=== PATIENT | female | born 1995 | race Caucasian/White ===

== ENCOUNTER 2016-09-15 08:43 | Emergency (ER) | payer OTHER ==
[~2016-09-15] VITALS: Ht 162.6 cm; Wt 85.0 kg
[~2016-09-15 08:43] MED LIST: AMPH30CA3 PO; BREX1TAB PO; FLUO20CA20 PO
[2016-09-15 08:47] VITALS: Ht 162.6 cm; Wt 85.0 kg
[2016-09-15] MEDS ORDERED: SODIUM CHLORIDE 0.9% 1000ML 1,000 ML IV STA (09:09)
--- NOTE | 2016-09-15 09:14 | EMERGENCY ROOM VISIT NOTE ---
History Report prepared by Michelle: Mercedes Gregory Under the Supervision of: Dr. Karen Dodson D.O. First contact with patient: 08:59 Chief Complaint: HEAD PAIN Stated Complaint: HEAD PAIN, DIZZY, NAUSEA, BODY ACHES History of Present Illness The patient is a 21 year old female who presents to the Emergency Room with complaints of a persistent fever that began last night. The patient also complains of a headache, body aches, and nausea. Both her muscles and joints hurt. The patient notes that she has been getting headaches on and off over the past month. She did not get a flu shot this year. She has not had a bowel movement in a few days. Denies coughing, sore throat, vomiting, urinary symptoms , or other complaints. The patient is a student at [employer]. She does not believe there is a chance of , as she is currently towards the end of her menstrual period. Source of History: patient Onset: last night Position: other (global) Timing: other (persistent) Associated Symptoms: + nausea, No cough, No sorethroat, No urinary symptoms , No vomiting Note: Other symptoms: body aches Review of Systems See HPI for pertinent positives & negatives. A total of 10 systems reviewed and were otherwise negative. Past Medical & Surgical Medical Problems: (1) Anxiety (2) Depression Family History Cancer Seizures Social History Smoking Status: Never Smoker Alcohol Use: occasionally Drug Use: none Marital Status: single Occupation Status: [employer] student Current/Historical Medications Scheduled Amphetamine-Dextroamphetamine 30MG (Adderall Xr 30MG), 30 MG PO QAM Brexpiprazole (Rexulti), 1 MG PO DAILY Fluoxetine Hcl (Pmdd) (Fluoxetine), 80 MG PO DAILY Oseltamivir (Tamiflu), 75 MG PO BID Scheduled PRN Oxycodone/Acetaminophen 5MG/325MG (Percocet 5MG/325MG), 1-2 TABLETS PO Q6 PRN for Pain Allergies Coded Allergies: No Known Allergies (Unverified , 06/15/16) Physical Exam Vital Signs Date Time Temp Pulse Resp B/P Pulse Ox O2 Delivery O2 Flow Rate FiO2 09/15/16 11:47 37.8 104 18 101/48 97 Room Air 09/15/16 10:14 102 16 112/50 98 Room Air 09/15/16 08:47 39.0 131 20 100/64 98 Room Air Physical Exam General: Appears to have significant body ache. HEENT: Head - normocephalic and atraumatic Pupils are equal, round, and reactive to light. Extraocular eye muscles are intact, and sclera are anicteric. Ears - Normal TMs. Nose - moist nasal mucosa without discharge. Mouth - moist buccal mucosa. Oropharynx is nonerythematous and there is no tonsillar exudate or edema noted. Neck: Supple; no JVD, nuchal rigidity, cervical lymphadenopathy. Heart: Regular rate and rhythm. There is a normal S1 and S2 with no murmurs, clicks, or gallops appreciated. Lungs: Clear to auscultation bilaterally with no wheezes, rales, or rhonchi. Abdomen: Soft, completely nontender, nondistended, with good bowel sounds. There are no palpable pulsatile masses or hepatosplenomegaly. There is no guarding, rigidity, or rebound noted. Extremities: No evidence of cyanosis, clubbing, or edema. There are easily palpable peripheral pulses. Pain with palpation to muscles and joints. Skin: warm and dry with good turgor and no rashes. Medical Decision & Procedures Laboratory Results 09/15/16 09:25 Red Blood Count 4.35, Mean Corpuscular Volume 79.3, Mean Corpuscular Hemoglobin 26.7, Mean Corpuscular Hemoglobin Concent 33.6, Mean Platelet Volume 9.5, Neutrophils (%) (Auto) 82.6, Lymphocytes (%) (Auto) 7.8, Monocytes (%) (Auto) 9.4, Eosinophils (%) (Auto) 0.0, Basophils (%) (Auto) 0.1, Neutrophils # (Auto) 7.45, Lymphocytes # (Auto) 0.70, Monocytes # (Auto) 0.85, Eosinophils # (Auto) 0.00, Basophils # (Auto) 0.01 09/15/16 09:25 Test 09/15/16 09:25 09/15/16 10:10 White Blood Count 9.02 K/uL (4.8-10.8) Red Blood Count 4.35 M/uL (4.2-5.4) Hemoglobin 11.6 g/dL (12.0-16.0) Hematocrit 34.5 % (37-47) Mean Corpuscular Volume 79.3 fL (80-100) Mean Corpuscular Hemoglobin 26.7 pg (25-34) Mean Corpuscular Hemoglobin Concent 33.6 g/dl (32-36) Platelet Count 159 K/uL (130-400) Mean Platelet Volume 9.5 fL (7.4-10.4) Neutrophils (%) (Auto) 82.6 % Lymphocytes (%) (Auto) 7.8 % Monocytes (%) (Auto) 9.4 % Eosinophils (%) (Auto) 0.0 % Basophils (%) (Auto) 0.1 % Neutrophils # (Auto) 7.45 K/uL (1.4-6.5) Lymphocytes # (Auto) 0.70 K/uL (1.2-3.4) Monocytes # (Auto) 0.85 K/uL (0.11-0.59) Eosinophils # (Auto) 0.00 K/uL (0-0.5) Basophils # (Auto) 0.01 K/uL (0-0.2) RDW Standard Deviation 44.2 fL (36.4-46.3) RDW Coefficient of Variation 15.0 % (11.5-14.5) Immature Granulocyte % (Auto) 0.1 % Immature Granulocyte # (Auto) 0.01 K/uL (0.00-0.02) Anion Gap 12.0 mmol/L (3-11) Est Creatinine Clear Calc Drug Dose 96.0 ml/min Estimated GFR () 96.1 Estimated GFR (Non- 82.9 BUN/Creatinine Ratio 10.9 (10-20) Calcium Level 8.8 mg/dl (8.5-10.1) Influenza Type A Antigen Neg for Influ A (NEG) Influenza Type B Antigen Neg for Influ B (NEG) Urine Color YELLOW Urine Appearance CLOUDY (CLEAR) Urine pH 7.5 (4.5-7.5) Urine Specific Frederic 1.017 (1.000-1.030) Urine Protein NEG (NEG) Urine Glucose (UA) NEG (NEG) Urine Ketones 3+ (NEG) Urine Occult Blood TRACE (NEG) Urine Nitrite NEG (NEG) Urine Bilirubin NEG (NEG) Urine Urobilinogen NEG (NEG) Urine Leukocyte Esterase LARGE (NEG) Urine WBC (Auto) >30 /hpf (0-5) Urine RBC (Auto) 5-10 /hpf (0-4) Urine Hyaline Casts (Auto) 1-5 /lpf (0-5) Urine Epithelial Cells (Auto) 20-30 /lpf (0-5) Urine Bacteria (Auto) 2+ (NEG) Laboratory results per my review. Medications Administered Medications (Trade) Dose Ordered Sig/Yobani Route Start Time Stop Time Status Last Admin Dose Admin Sodium Chloride (Nss 1000ml) 1,000 ml @ 999 mls/hr Q1H1M STAT IV 09/15/16 09:09 09/15/16 10:09 DC 09/15/16 09:33 999 MLS/HR Ketorolac Tromethamine (Toradol Inj) 30 mg NOW STAT IV 09/15/16 09:19 09/15/16 09:20 DC 09/15/16 09:33 30 MG Ondansetron HCl (Zofran Inj) 4 mg NOW STAT IV 09/15/16 09:19 09/15/16 09:20 DC 09/15/16 09:32 4 MG Acetaminophen (Tylenol Tab) 1,000 mg NOW STAT PO 09/15/16 10:29 09/15/16 10:31 DC 09/15/16 10:53 1,000 MG Oseltamivir Phosphate (Tamiflu Cap) 75 mg NOW STAT PO 09/15/16 11:26 09/15/16 11:27 DC 09/15/16 11:40 75 MG Procedure Medications: NSS 1000 ml @ 999 mls/hr IV, Zofran 4 mg IV, Toradol Inj 30 mg IV, Tylenol Tab 1000 mg PO, Tamiflu Cap 75 mg PO ED Course 0908: The patient was evaluated in room B6. A complete history and physical examination were performed. Nursing notes and previous electronic medical records were reviewed. IV lock was established and labs were drawn as above. Ordered NSS 1000 ml @ 999 mls/hr IV. 0919: Zofran 4 mg IV, Toradol Inj 30 mg IV. 1029: Ordered Tylenol Tab 1000 mg PO. 1045: I reassessed the patient. Her nausea has resolved and her headache feels a little bit better. She confirmed that she has no neck stiffness and has full range of motion of her neck without pain. She will be given Tylenol for fever and will drink some Gatorade. 1118: I reassessed the patient. Her headache has continued to improve. I discussed findings and results with the patient. She verbalized agreement of the treatment plan. The patient will be discharged home. 1126: Ordered Tamiflu cap 75 mg PO Medical Decision The patient is a 21 year old female who presents to the ED with a fever and headache. Differential diagnosis includes influenza, gastritis, viral illness, meningitis. Labs: Influenza was negative, urinalysis had 3+ ketones, trace blood, large leukocyte esterase, greater than 30 white blood cells, 2+ bacteria, normal renal function, glucose 115, normal WBC, slight anemia with hemoglobin of 11.6 ( she has a history of this). This is a 21-year-old female patient who presents to the ER with diffuse body pain, fever and headache. Her symptoms seem consistent with influenza. She has not had a flu shot this year. Her rapid flu swab was negative. However, I still believe that she is suffering from influenza. Of note, the patient's urine appears possibly infected. There was moderate contamination. I did send it for culture. When questioning the patient about urinary symptoms, she states that she did have slight urgency yesterday and some dysuria a couple weeks ago but denies any suprapubic abdominal pain, flank pain, or dysuria at this time. The patient felt much better upon discharge. She was encouraged to rest and take clear liquids. She will use Tamiflu for the next 5 days and quarantine herself the next 48 hours. We will get back to her if her urine culture is positive. [place] Drug Monitoring Program Search Results: patient reviewed within database, no issues identified Impression Primary Impression: Flu-like symptoms Scribe Attestation The scribe's documentation has been prepared under my direction and personally reviewed by me in its entirety. I confirm that the note above accurately reflects all work, treatment, procedures, and medical decision making performed by me. Departure Information Dispostion Home / Self-Care Prescriptions Oxycodone/Acetaminophen 5MG/325MG (PERCOCET 5MG/325MG) Tab 1-2 TABLETS PO Q6 Y for Pain, #14 TAB Prov: Karen Dodson D.O. 09/15/16 Oseltamivir (Tamiflu) 75 Mg Cap 75 MG PO BID, #9 CAP Prov: Karen Dodson D.O. 09/15/16 Referrals No Doctor, Assigned (PCP) Forms HOME CARE DOCUMENTATION FORM, IMPORTANT VISIT INFORMATION, WORK / SCHOOL INSTRUCTIONS Patient Instructions ED Flu, My [facility] Additional Instructions Rest. Take plenty of clear liquids tamiflu - twice a day percocet - 1-2 tabs. every 6 hours for pain Return to the ER if you develop worsening symptoms We will contact you if the urine culture grows
[2016-09-15] MEDS ORDERED: KETOROLAC TROMETHAMINE 30 MG/ML VIAL IV STA (09:19)
[2016-09-15] MEDS ORDERED: ONDANSETRON INJ 2 MG/ML 2 ML VIAL IV STA (09:19)
[2016-09-15 09:39] LABS: BASO % 0.1 %; BASO ABS # 0.01 K/uL (0-0.2); COMPLETE YES; HEMATOCRIT 34.5 % (37-47); IG% 0.1 %; LYMPH % 7.8 %; MEAN CELL VOLUME 79.3 fL (80-100); MEAN CORPUSCULAR HEMOGLOBIN 26.7 pg (25-34); MEAN CORPUSCULAR HGB CONC 33.6 g/dl (32-36); MEAN PLATELET VOLUME 9.5 fL (7.4-10.4); MONO % 9.4 %; NEUT % 82.6 %; PLATELET COUNT 159 K/uL (130-400); RED BLOOD COUNT 4.35 M/uL (4.2-5.4); WHITE BLOOD COUNT 9.02 K/uL (4.8-10.8)
[2016-09-15 09:56] LABS: BUN/CREATININE RATIO 10.9 (10-20); CALCIUM 8.8 mg/dl (8.5-10.1); CREATININE 0.97 mg/dl (0.60-1.20); POTASSIUM 3.7 mmol/L (3.5-5.1)
[2016-09-15] MEDS ORDERED: ACETAMINOPHEN 500 MG TAB PO STA (10:29)
[2016-09-15 10:57] LABS: URINE APPEARANCE CLOUDY (CLEAR); URINE BILIRUBIN NEG (NEG); URINE COLOR YELLOW; URINE EPITHELIAL CELL AUTO 20-30 /lpf (0-5); URINE NITRITE NEG (NEG); URINE PH 7.5 (4.5-7.5); URINE SPECIFIC GRAVITY 1.017 (1.000-1.030); UROBILINOGEN NEG (NEG)
[2016-09-15 11:02] LABS: MANUAL MICROSCOPIC REQUIRED? NO; REVIEW REQ? NO
[2016-09-15 11:04] LABS: SULFASALICYLIC ACID NEG (NEG)
[2016-09-15] MEDS ORDERED: OSELTAMIVIR PHOSPHATE 75 MG CAP PO STA (11:26)
[2016-09-15 11:47] VITALS: BP 101/48; PULSE 104; TEMP 37.8; O2SAT 97
[2016-09-15] MEDS ORDERED: OSEL75CA12 PO (12:06)
[2016-09-15] MEDS ORDERED: OXYC-57 PO (12:06)
[2016-09-16] MEDS ORDERED: IBUP-1050 PO (21:59)
== END 2016-09-15 12:10 | disposition home or self-care (01) ==
LOC: C.EDB 08:45
DX: R50.9 Fever, unspecified (principal); R51 Headache; F41.9 Anxiety disorder, unspecified; F32.9 Major depressive disorder, single episode, unspecified; A49.8 Other bacterial infections of unspecified site

== ENCOUNTER 2016-09-16 20:57 | Emergency (ER) | payer OTHER ==
[~2016-09-16] VITALS: Ht 162.6 cm; Wt 86.2 kg
[~2016-09-16 20:57] MED LIST changes: +OSEL75CA12 PO; +OXYC-57 PO
[2016-09-16 21:01] VITALS: Ht 162.6 cm; Wt 86.2 kg
[2016-09-16] MEDS ORDERED: ONDANSETRON INJ 2 MG/ML 2 ML VIAL IV STA (21:45)
[2016-09-16] MEDS ORDERED: KETOROLAC TROMETHAMINE 30 MG/ML VIAL IV STA (21:45)
[2016-09-16] MEDS ORDERED: SODIUM CHLORIDE 0.9% 1000ML 1,000 ML IV STA (21:45)
[2016-09-16] MEDS ORDERED: HYDROmorphone INJ 2 MG/ML SYR/VIAL IV PRN (21:45)
[2016-09-16] MEDS ORDERED: CEFTRIAXONE SOD INJ 2,000 MG in DEXTROSE 5% 50ML 50 ML IV STA (21:51)
[2016-09-16] MEDS ORDERED: IBUP-1050 PO (21:59)
[2016-09-16] MEDS ORDERED: HYDROmorphone INJ 0.5 MG/0.5 ML SYR ONE (22:14)
[2016-09-16 22:25] VITALS: O2SAT 99
[2016-09-16 22:43] LABS: BASO % 0.1 %; BASO ABS # 0.01 K/uL (0-0.2); COMPLETE YES; EOS % 0.7 %; HEMATOCRIT 31.8 % (37-47); IG% 0.2 %; LYMPH % 13.3 %; LYMPH ABS # 1.18 K/uL (1.2-3.4); MEAN CELL VOLUME 78.5 fL (80-100); MEAN CORPUSCULAR HEMOGLOBIN 26.4 pg (25-34); MEAN CORPUSCULAR HGB CONC 33.6 g/dl (32-36); MEAN PLATELET VOLUME 9.4 fL (7.4-10.4); NEUT % 73.7 %; PLATELET COUNT 152 K/uL (130-400); RED BLOOD COUNT 4.05 M/uL (4.2-5.4); WHITE BLOOD COUNT 8.86 K/uL (4.8-10.8)
[2016-09-16 23:06] LABS: BUN/CREATININE RATIO 12.6 (10-20); CALCIUM 8.4 mg/dl (8.5-10.1); CREATININE 0.91 mg/dl (0.60-1.20); POTASSIUM 3.9 mmol/L (3.5-5.1)
[2016-09-16 23:07] LABS: PREG INTERNAL NEGATIVE QC NEG CLEAR BACKGROUND; PREG INTERNAL POSITIVE QC POS CONTROL LINE
[2016-09-16 23:18] VITALS: TEMP 37.5
--- NOTE | 2016-09-16 23:30 | DIAGNOSTIC IMAGING REPORT ---
CT SCAN OF THE BRAIN WITHOUT IV CONTRAST CLINICAL HISTORY: Headache. COMPARISON STUDY: No priors. TECHNIQUE: Unenhanced axial CT scan of the brain is performed from the vertex to the skull base. Automated dose control exposure was utilized. CT DOSE: 537.48 mGy.cm FINDINGS: Brain parenchyma: The brain parenchyma is normal in appearance. There is no hemorrhage, mass effect, or evidence of acute territorial ischemia by CT criteria. Woodruff-white matter is preserved. No extra-axial fluid collection is seen. Ventricles, sulci, cisterns: Normal in configuration. Intracranial vasculature: The visualized intracranial vasculature at the skull base is normal in appearance. Calvarium: Unremarkable. Sinuses and mastoids: The visualized paranasal sinuses are clear. The mastoid air cells are well pneumatized. Orbits: The bony orbits are grossly intact. IMPRESSION: No acute intracranial abnormality. Electronically signed by: Sacha Sun M.D. 09/16/2016 11:28 PM Dictated Date/Time: 09/16/2016 11:26 PM
[2016-09-16 23:42] LABS: LYME DISEASE AB IGG NEG (NEG); LYME DISEASE AB IGM NEG (NEG)
[2016-09-16] MEDS ORDERED: DEXAMETHASONE SOD INJ 10 MG/ML VIAL IV ONE (23:45)
[2016-09-17] MEDS ORDERED: HYDROmorphone INJ 0.5 MG/0.5 ML SYR ONE (00:02)
[2016-09-17 01:20] LABS: URINE APPEARANCE CLOUDY (CLEAR); URINE BILIRUBIN NEG (NEG); URINE COLOR DK YELLOW; URINE EPITHELIAL CELL AUTO >30 /lpf (0-5); URINE NITRITE POS (NEG); URINE PH 5.5 (4.5-7.5); URINE SPECIFIC GRAVITY 1.031 (1.000-1.030); UROBILINOGEN POS (NEG)
[2016-09-17 01:41] LABS: MANUAL MICROSCOPIC REQUIRED? NO; REVIEW REQ? YES
--- NOTE | 2016-09-17 02:56 | DIAGNOSTIC IMAGING REPORT ---
LUMBAR PUNCTURE DIAGNOSTIC CLINICAL HISTORY: Headache. Suspected meningitis. COMPARISON STUDY: No previous studies for comparison. FINDINGS: A timeout was performed. The risks of the procedure were explained to the patient informed consent was obtained. The patient prepped and draped in sterile fashion. The skin was anesthetized with 1% lidocaine. Under fluoroscopic guidance, a lumbar puncture was performed at the L3-4 level. A 20-gauge spinal needle was introduced into the subarachnoid space. 8 cc of clear CSF was withdrawn under gravity drip. The fluid was 4 tubes and sent for analysis as requested by the referring clinician. There were no immediate locations. The patient was returned to the ER. IMPRESSION: Successful fluoroscopically guided diagnostic lumbar puncture, performed the L3-4 level.. 8 cc of clear CSF was withdrawn under gravity drip and sent for analysis. Electronically signed by: Anuj Nash M.D. 09/17/2016 2:54 AM Dictated Date/Time: 09/17/2016 2:52 AM
[2016-09-17 03:14] LABS: CSF APPEARANCE CLEAR; CSF CHEMISTRY TUBE # 2; CSF COLOR COLORLESS; CSF XANTHOCHROMIC NO XANTHOCHROMIA
[2016-09-17 03:28] LABS: CSF TOTAL PROTEIN 34.8 mg/dl (15.0-45.0)
--- NOTE | 2016-09-17 05:21 | EMERGENCY ROOM VISIT NOTE ---
History Report prepared by Michelle: Ayesha Hopkins Under the Supervision of: Dr. Wesley Alfred M.D. First contact with patient: 21:19 Chief Complaint: HEADACHE Stated Complaint: SEVERE HEADACHE History of Present Illness The patient is a 21 year old female who presents to the Emergency Room with complaints of a worsening headache with onset one month ago. She rates her pain as a 9/10 and notes that her headache has gotten much worse within the past two days. The patient describes that the headache is located in the middle of her head, around her forehead and temples. She believes that the headache has been in the same location throughout the past month. She notes that movement worsens her headache. One day ago, the patient had a fever of 102.7. She has had intermittent nausea. She was seen in the ED one day ago for the same symptoms. She was given Percocet and Tamiflu, neither of which provided relief. Two months ago, the patient felt as if she needed to urinate frequently. This sensation subsided but returned two days ago. One day ago, she had flank/back pain which has now subsided. She also had neck pain one day ago but this has subsided. A she did not having some urinary frequency. Additionally, she states she has a history of depression and anxiety. She denies any surgical history. Pt denies LOC, chills, diaphoresis, visual changes, chest pain, breathing difficulties, vomiting, abdominal pain, melena, hematochezia, numbness , weakness, lymphadenopathy, rash, or other complaints. Source of History: patient Onset: one month ago Position: head Symptom Intensity: 9/10 Quality: other (headache) Timing: worsening Modifying Factors (Worsening): movement Associated Symptoms: + back pain, + nausea, + urinary symptoms Review of Systems See HPI for pertinent positives and negatives. A total of ten systems were reviewed and were otherwise negative. Past Medical & Surgical Medical Problems: (1) Anxiety (2) Depression Family History Cancer Seizures Social History Smoking Status: Never Smoker Alcohol Use: occasionally Drug Use: none Marital Status: single Occupation Status: [employer] student Current/Historical Medications Scheduled Amphetamine-Dextroamphetamine 30MG (Adderall Xr 30MG), 30 MG PO QAM Brexpiprazole (Rexulti), 1 MG PO DAILY Fluoxetine Hcl (Pmdd) (Fluoxetine), 80 MG PO DAILY Oseltamivir (Tamiflu), 75 MG PO BID Scheduled PRN Ibuprofen (Advil), 200 MG PO Q6 PRN for Pain Oxycodone/Acetaminophen 5MG/325MG (Percocet 5MG/325MG), 1-2 TABLETS PO Q6 PRN for Pain Allergies Coded Allergies: No Known Allergies (Unverified , 09/16/16) Physical Exam Vital Signs Date Time Temp Pulse Resp B/P Pulse Ox O2 Delivery O2 Flow Rate FiO2 09/17/16 04:18 68 18 129/78 98 Room Air 09/17/16 03:07 75 18 135/53 96 Room Air 09/17/16 02:20 81 09/17/16 00:55 90 16 107/52 98 Room Air 09/16/16 23:18 37.5 09/16/16 23:09 84 20 126/66 98 Room Air 09/16/16 22:36 89 09/16/16 22:25 99 Room Air 09/16/16 21:01 38.1 124 18 112/72 96 Room Air Physical Exam GENERAL: Awake, alert, ill and uncomfortable appearing, no distress HENT: Normocephalic, atraumatic. TM's normal. Oropharynx unremarkable. Mild jolt accentuation. EYES: PERRL. EOMI. Normal conjunctiva. Sclera non-icteric. NECK: Supple. No nuchal rigidity. FROM. No JVD or bruit. RESPIRATORY: CTA CARDIAC: RRR. No murmur. ABDOMEN: Soft, non distended. No tenderness to palpation. No rebound or guarding. No masses. RECTAL: Deferred. MUSCULOSKELETAL: Unremarkable. No edema. No discoloration. Gross motor strength symmetric. NEURO: Cranial nerves 2-12 grossly intact. Normal sensorium. No sensory or motor deficits noted. Gait normal. Speech normal. No pronator drift. SKIN: No rash or jaundice noted. LYMPH: No adenopathy. Medical Decision & Procedures ER Provider Diagnostic Interpretation: CT results as stated below per my review and radiologist interpretation. CT SCAN OF THE BRAIN WITHOUT IV CONTRAST CLINICAL HISTORY: Headache. COMPARISON STUDY: No priors. TECHNIQUE: Unenhanced axial CT scan of the brain is performed from the vertex to the skull base. Automated dose control exposure was utilized. CT DOSE: 537.48 mGy.cm FINDINGS: Brain parenchyma: The brain parenchyma is normal in appearance. There is no hemorrhage, mass effect, or evidence of acute territorial ischemia by CT criteria. Woodruff-white matter is preserved. No extra-axial fluid collection is seen. Ventricles, sulci, cisterns: Normal in configuration. Intracranial vasculature: The visualized intracranial vasculature at the skull base is normal in appearance. Calvarium: Unremarkable. Sinuses and mastoids: The visualized paranasal sinuses are clear. The mastoid air cells are well pneumatized. Orbits: The bony orbits are grossly intact. IMPRESSION: No acute intracranial abnormality. Electronically signed by: Sacha Sun M.D. 09/16/2016 11:28 PM Dictated Date/Time: 09/16/2016 11:26 PM Laboratory Results 09/16/16 22:30 Red Blood Count 4.05, Mean Corpuscular Volume 78.5, Mean Corpuscular Hemoglobin 26.4, Mean Corpuscular Hemoglobin Concent 33.6, Mean Platelet Volume 9.4, Neutrophils (%) (Auto) 73.7, Lymphocytes (%) (Auto) 13.3, Monocytes (%) (Auto) 12.0, Eosinophils (%) (Auto) 0.7, Basophils (%) (Auto) 0.1, Neutrophils # (Auto ) 6.53, Lymphocytes # (Auto) 1.18, Monocytes # (Auto) 1.06, Eosinophils # (Auto ) 0.06, Basophils # (Auto) 0.01 09/16/16 22:30 Test 09/16/16 22:30 09/16/16 23:55 09/17/16 00:00 White Blood Count 8.86 K/uL (4.8-10.8) Red Blood Count 4.05 M/uL (4.2-5.4) Hemoglobin 10.7 g/dL (12.0-16.0) Hematocrit 31.8 % (37-47) Mean Corpuscular Volume 78.5 fL (80-100) Mean Corpuscular Hemoglobin 26.4 pg (25-34) Mean Corpuscular Hemoglobin Concent 33.6 g/dl (32-36) Platelet Count 152 K/uL (130-400) Mean Platelet Volume 9.4 fL (7.4-10.4) Neutrophils (%) (Auto) 73.7 % Lymphocytes (%) (Auto) 13.3 % Monocytes (%) (Auto) 12.0 % Eosinophils (%) (Auto) 0.7 % Basophils (%) (Auto) 0.1 % Neutrophils # (Auto) 6.53 K/uL (1.4-6.5) Lymphocytes # (Auto) 1.18 K/uL (1.2-3.4) Monocytes # (Auto) 1.06 K/uL (0.11-0.59) Eosinophils # (Auto) 0.06 K/uL (0-0.5) Basophils # (Auto) 0.01 K/uL (0-0.2) RDW Standard Deviation 43.4 fL (36.4-46.3) RDW Coefficient of Variation 15.0 % (11.5-14.5) Immature Granulocyte % (Auto) 0.2 % Immature Granulocyte # (Auto) 0.02 K/uL (0.00-0.02) Erythrocyte Sedimentation Rate 59 mm/hr (0-21) Anion Gap 9.0 mmol/L (3-11) Est Creatinine Clear Calc Drug Dose 103.1 ml/min Estimated GFR () 103.8 Estimated GFR (Non- 89.6 BUN/Creatinine Ratio 12.6 (10-20) Calcium Level 8.4 mg/dl (8.5-10.1) Human Chorionic Gonadotropin, Qual NEG (NEG) Lyme Disease IgG Antibody NEG (NEG) Lyme Disease IgM Antibody NEG (NEG) Urine Color DK YELLOW Urine Appearance CLOUDY (CLEAR) Urine pH 5.5 (4.5-7.5) Urine Specific [place] 1.031 (1.000-1.030) Urine Protein 1+ (NEG) Urine Glucose (UA) NEG (NEG) Urine Ketones 1+ (NEG) Urine Occult Blood 3+ (NEG) Urine Nitrite POS (NEG) Urine Bilirubin NEG (NEG) Urine Urobilinogen POS (NEG) Urine Leukocyte Esterase SMALL (NEG) Urine WBC (Auto) >30 /hpf (0-5) Urine RBC (Auto) 5-10 /hpf (0-4) Urine Hyaline Casts (Auto) 10-30 /lpf (0-5) Urine Epithelial Cells (Auto) >30 /lpf (0-5) Urine Bacteria (Auto) 4+ (NEG) CSF Color COLORLESS CSF Appearance CLEAR CSF WBC 2 /uL (0-5) CSF RBC 0 /uL (0) CSF Xanthrochromic NO XANTHOCHROMIA CSF Cell Count Tube # 4 CSF Chemistry Tube # 2 CSF Glucose 62 mg/dl (40-70) CSF Total Protein 34.8 mg/dl (15.0-45.0) Laboratory results reviewed by me Medications Administered Medications (Trade) Dose Ordered Sig/Yobani Route Start Time Stop Time Status Last Admin Dose Admin Ondansetron HCl 4 mg 4 mg NOW STAT IV 09/16/16 21:45 09/16/16 21:48 DC 09/16/16 22:30 4 MG Sodium Chloride (Nss 1000ml) 1,000 ml @ 999 mls/hr Q1H1M STAT IV 09/16/16 21:45 09/16/16 22:45 DC 09/16/16 22:30 999 MLS/HR Ketorolac Tromethamine 30 mg 30 mg NOW STAT IV 09/16/16 21:45 09/16/16 21:48 DC 09/16/16 22:30 30 MG Ceftriaxone Sodium/Dextrose (Rocephin Inj/D5 50ml) 70 ml @ 100 mls/hr ONE STAT IV 09/16/16 21:51 09/16/16 22:32 DC 09/17/16 00:07 100 MLS/HR Hydromorphone HCl (Dilaudid Inj) 0.5 mg STK-MED ONCE .ROUTE 09/16/16 22:14 09/16/16 22:16 DC 09/16/16 22:31 0.5 MG Dexamethasone Sodium Phosphate (Decadron Inj) 10 mg NOW ONCE IV 09/16/16 23:45 09/16/16 23:46 DC 09/17/16 00:07 10 MG Hydromorphone HCl (Dilaudid Inj) 0.5 mg STK-MED ONCE .ROUTE 09/17/16 00:02 09/17/16 00:04 DC 09/17/16 00:07 0.5 MG Procedure Lumbar Puncture Indication: Headache and fever Verbal consent was obtained after the risks and benefits were explained, including but not limited to headache, bleeding/clotting, scarring, infection, pain, and bone/joint/nerve damage. At this time, the risks of the procedure are less than the risks of NOT performing the procedure. A time out was taken and the correct patient and site identified. The patient was placed in the left lateral decubitus position and the back was prepped with betadine and draped in the standard fashion. The L3 intervertebral space was identified, anesthetized locally with 1% lidocaine without epinephrine, and the spinal needle was inserted through the skin with the bevel parallel to the dural fibers. The needle was carefully advanced however no CSF could be obtained. The stylet was replaced and the needle was removed. A bandaid was placed and the patient was placed in the supine position. The patient tolerated the procedure well and there were no complications. Radiology was consulted for fluoroscopic guidance. ED Course 2128: The patient was evaluated in room C9. The patient was first evaluated by the medical student. A complete history and physical exam was performed. 2144: Toradol 30 mg IV, Sodium Chloride 1000 ml @ 999 mls/hr IV, Zofran 4 mg IV 2150: Ceftriaxone Sodium 2,000 mg / Dextrose 70 ml @ 100 mls/hr IV 4: Dilaudid 0.5 mg IV 211: The patient is being taken to fluoroscopy for an LP. Medical Decision Triage Nursing notes reviewed. The patient's presentation and history were concerning for headache, flulike symptoms and urinary symptoms. Prior records were reviewed. The patient's urinary culture from yesterday is growing Escherichia coli. Etiologies such as viral syndrome, otitis, pharyngitis, pneumonia, urinary tract infection, sepsis, bacteremia, meningitis, as well as others were entertained. The patient has a headache. The patient was given saline, Dilaudid and Toradol for her symptoms. She is very uncomfortable with any movement. She has an Escherichia coli UTI. She noted some flank pain and back pain. This did raise more concern about possible. The patient underwent CT imaging of her head which did not reveal any abnormalities. No obvious sinus disease. The patient had a mild anemia on CBC. ESR was elevated at 59. Chemistry panel was unremarkable. test was negative. Lyme titer was negative. The patient's urinalysis tonight was again concerning for infection. UTI looked worse. The patient consented for lumbar puncture. Rocephin and Decadron was ordered. The patient underwent lumbar puncture. This was not successful at the bedside. The radiologists consult and the patient had an lumbar puncture performed under fluoroscopy. Thankfully this did not reveal any evidence of meningitis. I suspect the patient is dealing with a pyelonephritis. The Rocephin should give adequate coverage. The patient was still symptomatic as far as her headache goes. Not sure why she has the level of discomfort given the unremarkable LP and negative CT. The patient was still quite symptomatic with any movement. I discussed treatment in and out of the hospital. The patient does not feel well enough to go home. Consultation was made with internal medicine, Dr Gallagher for further management. The chart was completed utilizing [employer] Speech voice recognition software. Grammatical errors, random word insertions, pronoun errors, and incomplete sentences are an occasional consequence of this system due to software limitations, ambient noise, and hardware issues. Any formal questions or concerns about the content, text, or information contained within the body of this dictation should be directly addressed to the physician for clarification. Impression Primary Impression: Pyelonephritis Additional Impression: Headache Scribe Attestation The scribe's documentation has been prepared under my direction and personally reviewed by me in its entirety. I confirm that the note above accurately reflects all work, treatment, procedures, and medical decision making performed by me. Departure Information Dispostion Being Evaluated By Hospitalist Referrals No Doctor, Assigned (PCP) Patient Instructions My [facility] Problem Qualifiers
--- NOTE | 2016-09-17 08:56 | Medical Consult ---
Consultation Date of Consultation: Sep 17, 2016. Attending Physician: History of Present Illness 21 years old female with no significant PMHx (Anexiety/depression) presented to the ED 2 days ago with malaise, headache and body aches. she did not mention then that she has been having burning sensation in urine and increased urinary frequency. Initially diagnosed with flu and was discharged on Tamiflu. Her symptoms got worse. she came back to ED. giving her predominant headache , she appropriately got a lumbar puncture which was clean. (2 WBCs). she was found to have UTI. she was given 2 grams of CTXN and toradol IV. her headache and symptoms improved. she is tolerating po intake. Past Medical/Surgical History Medical Problems: (1) Alcohol use with intoxication Status: Acute (2) Flu-like symptoms Status: Acute (3) Headache Status: Acute (4) Hypokalemia Status: Acute (5) Pyelonephritis Status: Acute (6) Urinary tract infection Status: Acute Family History Cancer Seizures Social History Smoking Status: Never Smoker Drug Use: none Marital Status: single Occupation Status: [email or web address] student Allergies Coded Allergies: No Known Allergies (Unverified , 09/16/16) Current Inpatient Medications Current Inpatient Medications Medications (Trade) Dose Ordered Sig/Yobani Route Start Time Stop Time Status Last Admin Dose Admin Hydromorphone HCl (Dilaudid Inj) 0.5 mg Q15M PRN IV 09/16/16 21:45 09/30/16 21:44 Review of Systems Constitutional: + chills, + fever, No fatigue, No problem reported, No sweats, No weakness, No weight loss Eyes: No diplopia, No discharge, No eye pain, No problem reported, No redness, No worsening of vision ENT: No dental problems, No hearing loss, No nasal symptoms, No problem reported, No sore throat, No tinnitus, No trouble swallowing, No unusual epistaxis Respiratory: No cough, No dyspnea at rest, No dyspnea on exertion, No hemoptysis, No problem reported, No shortness of breath, No sputum, No wheezing Cardiovascular: No PND, No chest pain, No claudication, No edema, No orthopnea , No palpitations, No problem reported Abdomen: No GI bleeding, No constipation, No diarrhea, No nausea, No pain, No problem reported, No vomiting Musculoskeletal: No calf pain, No joint pain, No muscle pain, No problem reported, No swelling Genitourinary - Female: + dysuria, + urinary frequency, No dysmenorrhea, No hematuria, No menorrhagia, No metrorrhagia, No , No problem reported, No rash, No urinary incontinence, No urinary retention, No urinary urgency, No vaginal bleeding, No vaginal discharge, No vaginal itching, No vulvodynia Neurologic: No balance problems, No memory loss, No numbness/tingling, No paralysis, No problem reported, No vertigo, No weakness Psychiatric: No anhedonism, No anxiety, No depression symptoms, No insomnia, No problem reported, No substance abuse Endocrine: No excessive thirst, No excessive urination, No fatigue, No problem reported Hematologic / Lymphatic: No abnormal bleeding/bruising, No clotting problems, No night sweats, No problem reported, No swollen lymph nodes Integumentary: No bleeding, No color change, No itch, No new/changing skin lesions, No problem reported, No rash Physical Exam Date Time Temp Pulse Resp B/P Pulse Ox O2 Delivery O2 Flow Rate FiO2 09/17/16 08:33 57 16 144/58 97 Room Air 09/17/16 06:12 56 18 145/59 96 Room Air 09/17/16 04:18 68 18 129/78 98 Room Air 09/17/16 03:07 75 18 135/53 96 Room Air 09/17/16 02:20 81 09/17/16 00:55 90 16 107/52 98 Room Air 09/16/16 23:18 37.5 09/16/16 23:09 84 20 126/66 98 Room Air 09/16/16 22:36 89 09/16/16 22:25 99 Room Air 09/16/16 21:01 38.1 124 18 112/72 96 Room Air General Appearance: WD/WN, no apparent distress Head: normocephalic Eyes: normal inspection, PERRL, EOMI ENT: normal ENT inspection, hearing grossly normal Neck: supple Respiratory/Chest: chest non-tender, lungs clear, normal breath sounds, no respiratory distress Cardiovascular: regular rate, rhythm, no edema, no gallop, no JVD, no murmur Abdomen/GI: normal bowel sounds, non tender, soft, no organomegaly, no pulsatile mass, normal rectal exam Extremities/Musculoskelatal: normal inspection, no calf tenderness, normal capillary refill Neurologic/Psych: certified scrum master II-XII nml as tested, no motor/sensory deficits, alert, normal mood/affect, normal reflexes, oriented x 3 Skin: normal color, warm/dry, no rash Laboratory Results Last 24 Hours Test 09/16/16 22:30 09/16/16 23:55 09/17/16 00:00 White Blood Count 8.86 K/uL Red Blood Count 4.05 M/uL Hemoglobin 10.7 g/dL Hematocrit 31.8 % Mean Corpuscular Volume 78.5 fL Mean Corpuscular Hemoglobin 26.4 pg Mean Corpuscular Hemoglobin Concent 33.6 g/dl Platelet Count 152 K/uL Mean Platelet Volume 9.4 fL Neutrophils (%) (Auto) 73.7 % Lymphocytes (%) (Auto) 13.3 % Monocytes (%) (Auto) 12.0 % Eosinophils (%) (Auto) 0.7 % Basophils (%) (Auto) 0.1 % Neutrophils # (Auto) 6.53 K/uL Lymphocytes # (Auto) 1.18 K/uL Monocytes # (Auto) 1.06 K/uL Eosinophils # (Auto) 0.06 K/uL Basophils # (Auto) 0.01 K/uL RDW Standard Deviation 43.4 fL RDW Coefficient of Variation 15.0 % Immature Granulocyte % (Auto) 0.2 % Immature Granulocyte # (Auto) 0.02 K/uL Erythrocyte Sedimentation Rate 59 mm/hr Sodium Level 140 mmol/L Potassium Level 3.9 mmol/L Chloride Level 106 mmol/L Carbon Dioxide Level 25 mmol/L Anion Gap 9.0 mmol/L Blood Urea Nitrogen 12 mg/dl Creatinine 0.91 mg/dl Est Creatinine Clear Calc Drug Dose 103.1 ml/min Estimated GFR () 103.8 Estimated GFR (Non- 89.6 BUN/Creatinine Ratio 12.6 Random Glucose 89 mg/dl Calcium Level 8.4 mg/dl Human Chorionic Gonadotropin, Qual NEG Lyme Disease IgG Antibody NEG Lyme Disease IgM Antibody NEG Urine Color DK YELLOW Urine Appearance CLOUDY Urine pH 5.5 Urine Specific [place] 1.031 Urine Protein 1+ Urine Glucose (UA) NEG Urine Ketones 1+ Urine Occult Blood 3+ Urine Nitrite POS Urine Bilirubin NEG Urine Urobilinogen POS Urine Leukocyte Esterase SMALL Urine WBC (Auto) >30 /hpf Urine RBC (Auto) 5-10 /hpf Urine Hyaline Casts (Auto) 10-30 /lpf Urine Epithelial Cells (Auto) >30 /lpf Urine Bacteria (Auto) 4+ CSF Color COLORLESS CSF Appearance CLEAR CSF WBC 2 /uL CSF RBC 0 /uL CSF Xanthrochromic NO XANTHOCHROMIA CSF Cell Count Tube # 4 CSF Chemistry Tube # 2 CSF Glucose 62 mg/dl CSF Total Protein 34.8 mg/dl Assessment & Plan 21 years old female with body aches, headache and fatigue presented to the ED and was found to have UTI - Non complicated UTI, suggest increase fluid intake, Microbid 100mg po BID X 7 days Urine culture is pending, she was instructed to let her PCP call back on Monday to check on urine Cx results, confirm sensitivity
[2016-09-17] MEDS ORDERED: KETO10TA PO (09:03)
[2016-09-17] MEDS ORDERED: ONDA4TAB10 SL (09:03)
[2016-09-17] MEDS ORDERED: CEFD300C2 PO (09:03)
[2016-09-17 09:08] VITALS: BP 133/58; PULSE 69; O2SAT 96
--- NOTE | 2016-09-17 15:21 | EMERGENCY ROOM VISIT NOTE ---
ED Visit Note First contact with patient: 08:39 21 yr old female brought to my attention by Dr Jackson of [facility] Hospitalist service. Patient with fevers, body aches, headache and fatigue with increased urination and burning with urination over last 48 hours. Large work-up over last 24 hours with findings of Pyelonephritis. CT head negative as well LP last evening for meningitis. Initially planned on admission though patient feeling well this morning and in no distress. She has had no pain medications in 6+ hours and has no currently complaints. Abdomen is soft, non-tender and no other findings. Does note some aching in low back recently along with these UTI symptoms though denies any significant flank pains currently. Already received IV abx this morning. Dr Jackson feels patient does not require inpatient admission. Patient wishes to go home if this is OK. Dr Jackson suggested US for kidney evaluation though given presumed pyelo, no significant flank pain and patient stable/non-toxic I do not feel that this imaging would change approach at this time anyways. Already receieved cephalosporin and given known poor coverage of cipro in area seems reasonable to treat with Omnicef. Patient stable, feels well and is in no distress. I emphasized she could return at any time if worsening or other concerns. Written for Toradol at request of Dr Jackson though I have imparted on patient NO other NSAIDs. She has percocet at home. She was also given rx zofran for nausea. Stable and in no distress and clearly not septic at discharge.
--- NOTE | 2016-09-19 12:26 | Pharmacy Progress Note ---
ED Pharmacist Culture FollowUp Date of Service: Sep 19, 2016. Patient was sent home with a prescription for Cefdinir 300mg PO BID x 7 days, which should cover the E coli growing from the patient's URINE culture. Organism is pansensitive , including 3rd generation cephs tested in the panel. No action required at this time.
--- NOTE | 2016-09-20 14:53 | Pharmacy Progress Note ---
ED Pharmacist Progress Note Date of Service: Sep 20, 2016. Patient called to ask about the results of her urine cx. I advised the patient that the culture did grow e coli and that the abx she was prescribed was appropriate to treat this infection. Patient continues to have headache and some vague abdominal discomfort but no nausea, vomiting, dysuria or frequency. She also did not have a fever. She seems to have improved slightly, but was more concerned with ongoing headache -- all workup at last visit (CT head, LP) was negative. Advised patient to continue with the current abx therapy and if she was not feeling better in a day or two she could return to ER for evaluation.
== END 2016-09-17 09:13 | disposition home or self-care (01) ==
LOC: C.EDB 20:58
DX: N12 Tubulo-interstitial nephritis, not specified as acute or chronic (principal); R51 Headache; A49.8 Other bacterial infections of unspecified site; F41.9 Anxiety disorder, unspecified; F32.9 Major depressive disorder, single episode, unspecified

== ENCOUNTER → 2017-02-14 | Outpatient (CLI) | payer OTHER ==
[~2017-02-14] MED LIST changes: +IBUP-1050 PO; +ONDA4TAB10 SL
[2017-02-14 16:59] LABS: URINE APPEARANCE CLEAR (CLEAR); URINE BILIRUBIN NEG (NEG); URINE COLOR YELLOW; URINE NITRITE NEG (NEG); URINE PH 6.5 (4.5-7.5); URINE SPECIFIC GRAVITY 1.024 (1.000-1.030); UROBILINOGEN NEG (NEG)
[2017-02-14 17:06] LABS: MANUAL MICROSCOPIC REQUIRED? NO; REVIEW REQ? NO
== END | disposition home or self-care (01) ==
LOC: C.LABBC 14:46
PROVIDERS: ATTEND Family Medicine
DX: Z87.440 Personal history of urinary (tract) infections (principal)

== ENCOUNTER → 2017-06-02 | Outpatient (CLI) | payer OTHER ==
[~2017-06-02] MED LIST changes: -ONDA4TAB10 SL; -OSEL75CA12 PO; -OXYC-57 PO
[2017-06-02 11:02] LABS: CALCULATED INSULIN SENSITIVITY 0.318; GLUCOSE LOG 1.959; INSULIN FASTING 15.5 mU/L (3-25); INSULIN LOG 1.1903
[2017-06-02 11:11] LABS: CHOLESTEROL/HDL RATIO 2.6; FERRITIN 5.5 ng/ml (8.0-388.0); THYROID STIMULATING HORMONE 1.25 uIu/ml (0.300-4.500)
[2017-06-03 13:20] LABS: MICROSOMAL AB <1 IU/ML (<9)
== END | disposition home or self-care (01) ==
LOC: C.LAB 09:31
PROVIDERS: ATTEND Internal Medicine Endocrinology, Diabetes & Metabolism
DX: R53.83 Other fatigue (principal); R94.6 Abnormal results of thyroid function studies; N92.0 Excessive and frequent menstruation with regular cycle; R20.2 Paresthesia of skin; E66.9 Obesity, unspecified; Z68.34 Body mass index [BMI] 34.0-34.9, adult

== ENCOUNTER → 2017-06-19 | Outpatient (CLI) | payer OTHER ==
[2017-06-19 16:40] LABS: BASO % 0.2 %; BASO ABS # 0.01 K/uL (0-0.2); COMPLETE YES; EOS % 1.2 %; HEMATOCRIT 38.1 % (37-47); LYMPH % 36.1 %; LYMPH ABS # 1.82 K/uL (1.2-3.4); MEAN CELL VOLUME 81.2 fL (80-100); MEAN CORPUSCULAR HEMOGLOBIN 26.4 pg (25-34); MEAN CORPUSCULAR HGB CONC 32.5 g/dl (32-36); MEAN PLATELET VOLUME 9.4 fL (7.4-10.4); MONO % 7.9 %; NEUT % 54.6 %; PLATELET COUNT 241 K/uL (130-400); RED BLOOD COUNT 4.69 M/uL (4.2-5.4); WHITE BLOOD COUNT 5.04 K/uL (4.8-10.8)
[2017-06-19 17:17] LABS: THYROID STIMULATING HORMONE 2.2 uIu/ml (0.300-4.500)
== END | disposition home or self-care (01) ==
LOC: C.LAB 16:16
PROVIDERS: ATTEND Physician Assistant
DX: Z79.899 Other long term (current) drug therapy (principal)

== ENCOUNTER → 2017-06-26 | Outpatient (CLI) | payer OTHER ==
[~2017-06-26] MED LIST changes: +GADAVIST IV PRN
--- NOTE | 2017-06-26 23:13 | DIAGNOSTIC IMAGING REPORT ---
MRI OF THE PELVIS WITH AND WITHOUT CONTRAST CLINICAL HISTORY: Intermittent pelvic pain and postcoital bleeding. COMPARISON STUDY: No previous studies for comparison. TECHNIQUE: Utilizing a 1.5 Ana magnet and dedicated coil, multiplanar, multi echo imaging of the pelvis was performed pre and postcontrast administration. Injection of 9 cc of Gadavist IV was uneventful. FINDINGS: The endometrium is mildly thickened, measuring approximately 9 mm in thickness. This is likely related to the phase of menstrual cycle. There is a small amount of T1 hyperintense material within the uterine cavity that likely reflects blood. No uterine mass is present. No cervical abnormalities are identified. A tampon is in place. The size of the uterus is normal. Junctional zone is within normal limits. The ovaries are not enlarged. There is no pelvic ascites or lymphadenopathy. Uterine morphology appears normal. IMPRESSION: 1. No significant pelvic abnormality by MRI. 2. Endometrial thickness of approximately 9 mm which is likely related to phase of menstrual cycle. Small amount of T1 hyperintense material within the uterine cavity likely reflects blood. 3. Normal uterine morphology. Electronically signed by: Vincent Vickers M.D. 06/26/2017 11:12 PM Dictated Date/Time: 06/26/2017 8:21 PM
== END | disposition home or self-care (01) ==
LOC: C.MRI 18:53
PROVIDERS: ATTEND Nurse Practitioner Obstetrics & Gynecology
DX: R10.2 Pelvic and perineal pain (principal)

== ENCOUNTER → 2017-08-08 | Outpatient (CLI) | payer OTHER ==
[~2017-08-08] MED LIST changes: -GADAVIST IV PRN
== END | disposition home or self-care (01) ==
LOC: C.LAB 14:27
PROVIDERS: ATTEND Family Medicine
DX: R53.82 Chronic fatigue, unspecified (principal)